=== PATIENT | male | born 1970 | race Caucasian/White ===

== ENCOUNTER 2017-09-25 12:33 | Inpatient (IN) | payer SELFPAY ==
--- NOTE | 2017-09-25 13:07 | PDOC ---
History of Present Illness - General Chief Complaint: Pain, Acute Stated Complaint: ABDOMINAL PAIN, BLOATING Time Seen by Provider: 09/25/17 13:07 - History of Present Illness Initial Comments: Previously healthy 47 year old male presenting with intermittent lower abdominal pain for the past week. Patient describes the pain as an achy pain/ pressure as if "someone is punching me in the stomach". The pain at a maximum 5/ 10 in intensity and non radiation without any obvious exacerbating factors but sometimes better with gas-x and peptobismal. He denies fevers, chills, nausea, vomiting, diarrhea, constipation, chest [ain, coough, urinary frequency, urinary frequency, or dysuria. Does not have a PCP. 09/25/17 13:46 09/25/17 13:58 Past History - Past Medical History Allergies/Adverse Reactions: Allergies Allergy/AdvReac Type Severity Reaction Status Date / Time pork derived (porcine) Allergy Vomiting Verified 09/25/17 12:54 Home Medications: Ambulatory Orders NK [No Known Home Medication] 09/25/17 Asthma: Yes COPD: No - Suicide/Smoking/Psychosocial Hx Smoking History: Former smoker Have you smoked in the past 12 months: Yes If you are a former smoker, when did you quit?: 2 DAYS Information on smoking cessation initiated: Yes 'Breaking Loose' booklet given: 09/25/17 Hx Alcohol Use: Yes (SOCIAL) Drug/Substance Use Hx: No Review of Systems - Review of Systems Constitutional: No: Chills, Diaphoresis, Fever, Loss of Appetite HEENTM: No: Blurred Vision, Recent change in vision Respiratory: No: Cough, Shortness of Breath, Wheezing Cardiac (ROS): No: Chest Pain, Irregular Heart Rate, Lightheadedness ABD/GI: No: Constipated, Diarrhea, Nausea, Vomiting : No: Dysuria, Frequency Integumentary: No: Rash Neurological: No: Numbness, Tingling *Physical Exam - Vital Signs Last Vital Signs Temp Pulse Resp BP Pulse Ox 98.1 F 122 H 20 131/101 99 09/25/17 12:50 09/25/17 12:50 09/25/17 12:50 09/25/17 12:50 09/25/17 12:50 - Physical Exam General Appearance: Yes: Nourished. No: Appropriately Dressed
--- NOTE | 2017-09-25 13:39 | PDOC ---
Attending Attestation - HPI HPI: The patient is a 47 year old male, with no significant past medical history, who presents to the emergency department with, one week of intermittent lower abdominal pain. He describes the lower abdominal pain as a pressure. He reports to have felt bloated today. The patient reports it to feel similar to gas pain. He reports relief when he passes gas. He denies flank pain. He denies any recent fevers, chills, headache or dizziness. He denies any recent nausea, vomit, diarrhea or constipation. He denies any recent chest pain or shortness of breath. He denies any recent dysuria, frequency, urgency or hematuria. Allergies: Pork derived (Porcine) Past surgical history: None reported. Social History: Nonsmoker. Denies recreational drug use. Documentation prepared by Araceli Watson, acting as medical technologist for Becky Munoz MD. 09/25/17 15:03 <Araceli Watson - Last Filed: 09/25/17 15:03> - Resident Resident Name: Annamaria Glasgow - ED Attending Attestation I have performed the following: I have examined & evaluated the patient, The case was reviewed & discussed with the resident, I agree w/resident's findings & plan, Exceptions are as noted - Physicial Exam PE: GENERAL: Awake, alert, and fully oriented, in no acute distress HEAD: No signs of trauma EYES: PERRLA, EOMI, sclera anicteric, conjunctiva clear ENT: Auricles normal inspection, hearing grossly normal, nares patent, oropharynx clear without exudates. Moist mucosa NECK: Normal ROM, supple, no lymphadenopathy, JVD, or masses LUNGS: Breath sounds equal, clear to auscultation bilaterally. No wheezes, and no crackles HEART: Regular rate and rhythm, normal S1 and S2, no murmurs, rubs or gallops ABDOMEN: Soft, +LLQ tenderness, normoactive bowel sounds. No guarding, no rebound. No masses EXTREMITIES: Normal range of motion, no edema. No clubbing or cyanosis. No cords, erythema, or tenderness NEUROLOGICAL: Cranial nerves II through XII grossly intact. Normal speech, normal gait SKIN: Warm, Dry, normal turgor, no rashes or lesions noted. - Medical Decision Making Initial plan was to obtain CT for lower abdominal tenderness, however, labs showed pancreatitis. Will admit for the same. <Becky Munoz - Last Filed: 09/27/17 10:37>
[2017-09-25 14:04] LABS: BASO % 0.5 % (0-2.0); EOS % 0.4 % (0-4.5); MCHC 33.2 g/dl (32.0-35.9); MEAN CELL VOLUME 96.4 fl (80-96); MEAN PLT VOLUME 7.2 fl (7.5-11.1); NEUT % 65.8 % (42.8-82.8); PLATELET COUNT 122 K/MM3 (134-434); RDW 14.9 % (11.9-15.9); WHITE BLOOD COUNT 6.2 K/mm3 (4.0-10.0)
[2017-09-25 14:37] LABS: ALBUMIN 2.8 g/dl (3.4-5.0); ALK PHOS 160 U/L (45-117); ANION GAP 11 (8-16); CALCIUM 8.9 mg/dL (8.5-10.1); CO2 24 mmol/L (21-32); CREATININE 0.6 mg/dL (0.7-1.3); GLUCOSE,RANDOM 94 mg/dL (74-106); SGPT/ALT 32 U/L (12-78)
[2017-09-25 14:41] LABS: SGOT/AST 31 U/L (15-37)
[2017-09-25] MEDS ORDERED: SODIUM CHLORIDE 1,000 ML IV SCH (15:15)
[2017-09-25 15:17] LABS: CHOLESTEROL 126 mg/dL (50-200)
[2017-09-25] MEDS: LACTATED RINGERS SOLUTION 1,000 ML/1,000 ML INFUS.BAG IV SCH (16:02)
[2017-09-25] MEDS ORDERED: morphine SULFATE 4 MG/ML VIAL ONE (16:22)
[2017-09-25] MEDS: morphine SULFATE 4 MG/ML VIAL IVPUSH PRN (16:23)
--- NOTE | 2017-09-25 16:28 | HP ---
CHIEF COMPLAINT: Abdominal Pain PCP: None HISTORY OF PRESENT ILLNESS: Mr Crews is a 47yo otherwise healthy male who presented with 1 week history of sharp, intermittent abdominal pain, in the lower quadrants and at times the LUQ. At its worst, it is 7/10, but at the moment is asymptomatic at rest. He has had no previous similar episodes. Unreliable association with position and food. The pain does not radiate. No history of gallstones, no colicky pain, no abdominal trauma, no scorpion bites. He drinks 3 glasses of wine a day and at times will have one mixed drink. Never withdrawal symptoms. No binges. No nausea , vomiting, diarrhea, constipation. In the ER, the patient was hemodynamically stable. Labs were significant for normal WBC, +Lipase 1113. He had mildly elevated ALP. Abdominal ultrasound was ordered, not performed. He was started on LR 250cc/hr. Recent Travel: Denies PAST MEDICAL HISTORY: None PAST SURGICAL HISTORY: None Social History: Lives with boyfriend Smoking: Currently smokes 1/4 pack per day for 20 years Alcohol: 3+ wine glasses per day Drugs: None Family History: Noncontributory Allergies pork derived (porcine) Allergy (Verified 09/25/17 12:54) Vomiting HOME MEDICATIONS: Home Medications Medication Instructions Recorded NK [No Known Home Medication] 09/25/17 REVIEW OF SYSTEMS CONSTITUTIONAL: Absent: fever, chills, diaphoresis, generalized weakness, malaise, loss of appetite, weight change HEENT: Absent: rhinorrhea, nasal congestion, throat pain, throat swelling, difficulty swallowing, mouth swelling, ear pain, eye pain, visual changes CARDIOVASCULAR: Absent: chest pain, syncope, palpitations, irregular heart rate, lightheadedness , peripheral edema RESPIRATORY: Absent: cough, shortness of breath, dyspnea with exertion, orthopnea, wheezing, stridor, hemoptysis GASTROINTESTINAL: Absent: abdominal pain, abdominal distension, nausea, vomiting, diarrhea, constipation, melena, hematochezia GENITOURINARY: Absent: dysuria, frequency, urgency, hesitancy, hematuria, flank pain, genital pain MUSCULOSKELETAL: Absent: myalgia, arthralgia, joint swelling, back pain, neck pain SKIN: Absent: rash, itching, pallor HEMATOLOGIC/IMMUNOLOGIC: Absent: easy bleeding, easy bruising, lymphadenopathy, frequent infections ENDOCRINE: Absent: unexplained weight gain, unexplained weight loss, heat intolerance, cold intolerance NEUROLOGIC: Absent: headache, focal weakness or paresthesias, dizziness, unsteady gait, seizure, mental status changes, bladder or bowel incontinence PSYCHIATRIC: Absent: anxiety, depression, suicidal or homicidal ideation, hallucinations. PHYSICAL EXAMINATION Vital Signs Temperature 98.1 F 09/25/17 12:50 Pulse Rate 72 09/25/17 14:51 Respiratory Rate 16 09/25/17 14:51 Blood Pressure 110/68 09/25/17 14:51 O2 Sat by Pulse Oximetry (%) 99 09/25/17 12:50 GEN: AAOx3, NAD, smiling and conversational HEENT: PERRLA, EOMi CV: S1, S2, tachycardic rate, regular rhythm LUNG: CTABL ABD: Nondistended, Mostly TTP in LUQ with guarding + rebound. Lesser TTP in Lower abdomen with guarding + rebound. Negative murphys. MSK: No edema, no erythema NEURO: CN 2-12 intact, no MSK or sensation deficits Laboratory Last Values WBC 6.2 K/mm3 (4.0-10.0) 09/25/17 14:00 RBC 4.49 M/mm3 (4.00-5.60) 09/25/17 14:00 Hgb 14.4 GM/dL (11.7-16.9) 09/25/17 14:00 Hct 43.3 % (35.4-49) 09/25/17 14:00 MCV 96.4 fl (80-96) H 09/25/17 14:00 MCH 32.0 pg (25.7-33.7) 09/25/17 14:00 MCHC 33.2 g/dl (32.0-35.9) 09/25/17 14:00 RDW 14.9 % (11.9-15.9) 09/25/17 14:00 Plt Count 122 K/MM3 (134-434) L 09/25/17 14:00 MPV 7.2 fl (7.5-11.1) L 09/25/17 14:00 Neutrophils % 65.8 % (42.8-82.8) 09/25/17 14:00 Lymphocytes % 25.3 % (8-40) 09/25/17 14:00 Monocytes % 8.0 % (3.8-10.2) 09/25/17 14:00 Eosinophils % 0.4 % (0-4.5) 09/25/17 14:00 Basophils % 0.5 % (0-2.0) 09/25/17 14:00 Sodium 135 mmol/L (136-145) L 09/25/17 14:00 Potassium 3.7 mmol/L (3.5-5.1) 09/25/17 14:00 Chloride 100 mmol/L (98-107) 09/25/17 14:00 Carbon Dioxide 24 mmol/L (21-32) 09/25/17 14:00 Anion Gap 11 (8-16) 09/25/17 14:00 BUN 11 mg/dL (7-18) 09/25/17 14:00 Creatinine 0.6 mg/dL (0.7-1.3) L 09/25/17 14:00 Creat Clearance w eGFR > 60 (>60) 09/25/17 14:00 Random Glucose 94 mg/dL (74-106) 09/25/17 14:00 Calcium 8.9 mg/dL (8.5-10.1) 09/25/17 14:00 Total Bilirubin 1.0 mg/dL (0.2-1.0) 09/25/17 14:00 AST 31 U/L (15-37) 09/25/17 14:00 ALT 32 U/L (12-78) 09/25/17 14:00 Alkaline Phosphatase 160 U/L (45-117) H 09/25/17 14:00 Total Protein 7.0 g/dl (6.4-8.2) 09/25/17 14:00 Albumin 2.8 g/dl (3.4-5.0) L 09/25/17 14:00 Triglycerides 63 mg/dL (35-160) 09/25/17 14:00 Cholesterol 126 mg/dL (50-200) 09/25/17 14:00 Total LDL Cholesterol 86 mg/dL (5-100) 09/25/17 14:00 HDL Cholesterol 38 mg/dL (40-60) L 09/25/17 14:00 Lipase 1113 U/L (73-393) H 09/25/17 14:00 Active Medications Generic Name Dose Route Start Last Admin Trade Name Freq PRN Reason Stop Dose Admin Lactated Ringer's 1,000 ml in 1,000 mls @ 250 mls/hr 09/25/17 15:30 09/25/17 16:02 Lactated Ringers Solution IV 250 mls/hr ASDIR OLEGARIO Administration Morphine Sulfate 2 mg 09/25/17 16:05 09/25/17 16:23 Morphine Sulfate IVPUSH 2 mg Q4H PRN Administration PAIN ASSESSMENT/PLAN: Mr Crews is a 47yo otherwise healthy male who presented with 1 week history of sharp, intermittent abdominal pain found to have acute pancreatitis. # Acute Pancreatitis - Amount of alcohol abuse does not justify alcohol induced pancreatitis. Could be secondary to gallstones since ALP is slightly elevated, though Dunlap's negative. Will get Abd U/S to assess for gallstones. If stones are present, will consult surgery for cholecystectomy at this visit. No other possible causes. Will keep NPO for today and reassess tmrw. Will start LR @250cc/hr since pt has good renal function. IV Morphine PRN for pain. # Nicotine Abuse - Daily smoker, will give nicotine patch if requests # FEN - IVF as stated above, elec WNL, NPO for now # PPx - EAM, SCDs, avoid Heparin due to porcine allergy, no GI ppx needed, no PT needed as patient is ambulatory # Dispo - Admit to med/surg. ADAT. d/w Dr Ana Lilia Mercedes MD - PGY1 Internal Medicine Resident Visit type - Emergency Visit Emergency Visit: No - New Patient This patient is new to me today: No - Critical Care Critical Care patient: No
--- NOTE | 2017-09-25 17:53 | PN ---
Teaching Attending Note Name of Resident: Nay Mercedes ATTENDING PHYSICIAN STATEMENT I saw and evaluated the patient. I reviewed the resident's note and discussed the case with the resident. I agree with the resident's findings and plan as documented. SUBJECTIVE:47yo M with no PMH presented to the ER with low abdominal pain x1 week. progressively worsen. no exacerbating or relieving factors. was well prior to the start of abdominal pain. denies previous episodes. denies Cp, SOB, fever, chills, n/V/c/d, colic pain. Admit to drinking 3 glasses of wine daily. no binge episodes recently OBJECTIVE: Last Vital Signs Temp Pulse Resp BP Pulse Ox 98.1 F 72 16 110/68 99 09/25/17 12:50 09/25/17 14:51 09/25/17 14:51 09/25/17 14:51 09/25/17 12:50 General NAD CV S1 S2 tachy Lungs CTA B/L no wheezing Abdomen +LLQ/RLQ tenderness, +epigastric guarding normoactive BS, negative jennings sign Extremities no pedal edema ASSESSMENT AND PLAN: 47 yo M with no PMH presented to the ER with abdominal pain and found to have acute pancreatitis 1. Acute Pancreatitis- medicine admission. likely due to gallstones, mildly elevated alk phos. Start NPO, LR @ 200cc/H, pain and nausea control. U/s done and awaiting official read. TG, Ca normal limits 2. Continuous polysubstance abuse- nicotine and ETOH. counseled on risks of continued use. nicotine patch, 3. DVT ppx- EAM, SCD. has porcine allergy
[2017-09-25 19:00] LABS: URINE APPEARANCE CLEAR; URINE BILIRUBIN NEGATIVE (NEGATIVE); URINE BLOOD 1+ (NEGATIVE); URINE COLOR YELLOW; URINE GLUCOSE (UA) NEGATIVE (NEGATIVE); URINE KETONE 1+ (NEGATIVE); URINE LEUK ESTERASE NEGATIVE (NEGATIVE); URINE NITRITE NEGATIVE (NEGATIVE); URINE PROTEIN NEGATIVE (NEGATIVE); URINE UROBILINOGEN NEGATIVE mg/dL (0.2-1.0)
[2017-09-26] MEDS ORDERED: morphine SULFATE 4 MG/ML VIAL ONE (01:16)
[2017-09-26] MEDS: morphine SULFATE 4 MG/ML VIAL IVPUSH PRN ×2 (01:20→09:05)
[2017-09-26 06:26] LABS: MCH 33.1 pg (25.7-33.7); MEAN CELL VOLUME 97.2 fl (80-96); PLATELET COUNT 126 K/MM3 (134-434); RDW 14.9 % (11.9-15.9); WHITE BLOOD COUNT 3.6 K/mm3 (4.0-10.0)
[2017-09-26 07:06] LABS: ALBUMIN 2.3 g/dl (3.4-5.0); ANION GAP 11 (8-16); CALCIUM 8.1 mg/dL (8.5-10.1); CO2 23 mmol/L (21-32); CREATININE 0.4 mg/dL (0.7-1.3); GLUCOSE,RANDOM 77 mg/dL (74-106); MAGNESIUM 1.4 mg/dL (1.8-2.4); PHOSPHOROUS 2.6 mg/dL (2.5-4.9); SGOT/AST 20 U/L (15-37); SGPT/ALT 22 U/L (12-78)
[2017-09-26 07:07] LABS: ALK PHOS 121 U/L (45-117); BILIRUBIN,TOTAL 1.1 mg/dL (0.2-1.0); TOT PROT 5.8 g/dl (6.4-8.2)
[2017-09-26] MEDS ORDERED: morphine CARPU-JECT 8 MG/1 ML DISP.SYRIN ONE (09:11)
[2017-09-26] MEDS: LACTATED RINGERS SOLUTION 1,000 ML/1,000 ML INFUS.BAG IV SCH ×3 (12:52→20:30)
[2017-09-26] MEDS ORDERED: MAGNESIUM SULF 50% (8.12 MEQ/2 ML-1 GM VIAL) IVPB ONE (13:30)
[2017-09-26 13:34] VITALS: BMI 19.6
[2017-09-26 13:35] LABS: URINE LEUK ESTERASE Negative (NEGATIVE)
[2017-09-26 13:52] LABS: MCH 32.1 pg (25.7-33.7); MCHC 32.8 g/dl (32.0-35.9); MEAN CELL VOLUME 97.9 fl (80-96); MEAN PLT VOLUME 7.8 fl (7.5-11.1); PLATELET COUNT 129 K/MM3 (134-434); RDW 14.8 % (11.9-15.9); WHITE BLOOD COUNT 4.3 K/mm3 (4.0-10.0)
--- NOTE | 2017-09-26 14:00 | PN ---
Teaching Attending Note Name of Resident: Amado Kulkarni ATTENDING PHYSICIAN STATEMENT I saw and evaluated the patient. I reviewed the resident's note and discussed the case with the resident. I agree with the resident's findings and plan as documented. SUBJECTIVE:now complaining of RLQ pain radiating to the back. staes it started suddenly this AM. dneies CP, SOB, fever, chills, N/V/C/D OBJECTIVE: Last Vital Signs Temp Pulse Resp BP Pulse Ox 98.2 F 92 H 18 131/89 96 09/26/17 10:34 09/26/17 10:34 09/26/17 10:34 09/26/17 10:34 09/26/17 09:47 General NAD CV S1 S2 RRR Lungs CTA B/L no wheezing Abdomen +RLQ tenderness, +guarding + mcburny point. negative rovsing sign negative obtruator sign Extremities no pedal edema ASSESSMENT AND PLAN: 47 yo M with no PMH presented to the ER with abdominal pain and found to have acute pancreatitis 1. Acute Pancreatitis-now has point tenderness in RLQ clinically concerning for appendicitis. unable to visualize appendix on u/s. CT with contrast to evaluate. clinically improved. U/s showing dilated pancreatic duct. will need MRCP to further evaluate. IVF and pain control. NPO until results of CT 2. anemia- likely dilutional. repeat Hgb. no signs of bleeding. no need for txn 3. Hypomangesemia- Mg 1g 4. Continuous polysubstance abuse- nicotine and ETOH. counseled on risks of continued use. nicotine patch, 5. DVT ppx- EAM, SCD. has porcine allergy 6. spoke with pt with mother present at bedside. all questions answered. verbalized understanding of plan
--- NOTE | 2017-09-26 16:11 | PN ---
Physical Exam: SUBJECTIVE: Patient seen and examined at bedside. Patient states he feels slightly better today, but still continues to complain of intermittent abdominal pain. Patient states his pain is controlled with medications. OBJECTIVE: Vital Signs Period Temp Pulse Resp BP Sys/Jones Pulse Ox Last 24 Hr 97.9 F-99.5 F 84-105 16-20 131-147/76-96 96-100 GENERAL: The patient is awake, alert, and fully oriented, in no acute distress. HEAD: Normal with no signs of trauma. LUNGS: Breath sounds equal, clear to auscultation bilaterally, no wheezes, no crackles, no accessory muscle use. HEART: Regular rate and rhythm, S1, S2 without murmur, rub or gallop. ABDOMEN: Tenderness to palpation in all quadrants with possible rebound in the RUQ. Abdominal exam is limited due to diffuse guarding. EXTREMITIES: 2+ pulses, warm, well-perfused, no edema. NEUROLOGICAL: Cranial nerves II through X grossly intact. Normal speech, gait not observed. SKIN: Warm, dry, normal turgor, no rashes or lesions noted Laboratory Results - last 24 hr 09/25/17 09/26/17 09/26/17 18:50 05:44 05:44 WBC 3.6 L D RBC 3.72 L Hgb 12.3 D Hct 36.1 D MCV 97.2 H MCH 33.1 MCHC 34.0 RDW 14.9 Plt Count 126 L MPV 8.0 D Sodium 135 L Potassium 3.4 L Chloride 101 Carbon Dioxide 23 Anion Gap 11 BUN 9 Creatinine 0.4 L D Creat Clearance w eGFR > 60 Random Glucose 77 Calcium 8.1 L Phosphorus 2.6 Magnesium 1.4 L Total Bilirubin 1.1 H AST 20 D ALT 22 D Alkaline Phosphatase 121 H D Total Protein 5.8 L Albumin 2.3 L Urine Color Yellow Urine Appearance Clear Urine pH 6.0 Ur Specific Hollis 1.008 Urine Protein Negative Urine Glucose (UA) Negative Urine Ketones 1+ H Urine Blood 1+ H Urine Nitrite Negative Urine Bilirubin Negative Urine Urobilinogen Negative Ur Leukocyte Esterase Negative 09/26/17 12:55 WBC 4.3 RBC 3.83 L Hgb 12.3 Hct 37.5 MCV 97.9 H MCH 32.1 MCHC 32.8 RDW 14.8 Plt Count 129 L MPV 7.8 Sodium Potassium Chloride Carbon Dioxide Anion Gap BUN Creatinine Creat Clearance w eGFR Random Glucose Calcium Phosphorus Magnesium Total Bilirubin AST ALT Alkaline Phosphatase Total Protein Albumin Urine Color Urine Appearance Urine pH Ur Specific Hollis Urine Protein Urine Glucose (UA) Urine Ketones Urine Blood Urine Nitrite Urine Bilirubin Urine Urobilinogen Ur Leukocyte Esterase Active Medications Generic Name Dose Route Start Last Admin Trade Name Freq PRN Reason Stop Dose Admin Lactated Ringer's 1,000 ml in 1,000 mls @ 250 mls/hr 09/25/17 15:30 09/26/17 12:52 Lactated Ringers Solution IV 250 mls/hr ASDIR OLEGARIO Administration Morphine Sulfate 2 mg 09/25/17 16:05 09/26/17 09:05 Morphine Sulfate IVPUSH 2 mg Q4H PRN Administration PAIN ASSESSMENT/PLAN: Mr Crews is a 47yo otherwise healthy male who presented with 1 week history of sharp, intermittent abdominal pain found to have acute pancreatitis. # abdominal pain 2/2 possible Acute Pancreatitis vs appendicitis -LR @ 250 -CT abdomen w/ contrast to r/o appendicitis -If CT abdomen negative for appendicitis, will proceed w/ MRCP -IV Morphine PRN for pain. # FEN -LR @ 250 -K and mag low; will replete -NPO until appendicitis ruled out # PPx -Early ambulation, SCDs -avoid HSQ 2/2 porcine allergy -no GI pptx indicated at this time # Dispo -admitted to med-surg Visit type - Emergency Visit Emergency Visit: Yes ED Registration Date: 09/25/17 Care time: The patient presented to the Emergency Department on the above date and was hospitalized for further evaluation of their emergent condition. - New Patient This patient is new to me today: Yes Date on this admission: 09/26/17 - Critical Care Critical Care patient: No
[2017-09-26] MEDS ORDERED: KCL 10 MEQ IVPB 10 MEQ/100 ML INFUS.BAG IVPB SCH (17:30)
[2017-09-26] MEDS ORDERED: LORazepam 2 MG/ML SDV VIAL IVPUSH ONE (17:30)
[2017-09-26] MEDS ORDERED: POTASSIUM CHLORIDE 30 MEQ in SODIUM CHLORIDE 300 ML IVPB ONE (17:30)
[2017-09-26] MEDS ORDERED: POTASSIUM CHLORIDE ORAL LIQUID 20 MEQ/15 ML PO ONE (17:50)
[2017-09-26] MEDS: POTASSIUM CHLORIDE 20 MEQ PREMIX IVPB 100 ML IVPB SCH (18:15)
[2017-09-27] MEDS: LACTATED RINGERS SOLUTION 1,000 ML/1,000 ML INFUS.BAG IV SCH ×2 (00:43→04:44)
[2017-09-27] MEDS: morphine SULFATE 4 MG/ML VIAL IVPUSH PRN (01:11)
--- NOTE | 2017-09-27 01:32 | EKG ---
Test Reason : Blood Pressure : / mmHG Vent. Rate : 100 BPM Atrial Rate : 100 BPM P-R Int : 142 ms QRS Dur : 088 ms QT Int : 350 ms P-R-T Axes : 059 057 066 degrees QTc Int : 451 ms NORMAL SINUS RHYTHM MINIMAL VOLTAGE CRITERIA FOR LVH, MAY BE NORMAL VARIANT BORDERLINE ECG NO PREVIOUS ECGS AVAILABLE Confirmed by SARITA AHUJA MD ([id number]) on 09/27/2017 1:31:58 AM Referred By: Confirmed By:SARITA AHUJA MD
[2017-09-27 05:48] VITALS: BP 143/96; PULSE 94; TEMP 98.6
[2017-09-27 08:35] LABS: MCHC 33.1 g/dl (32.0-35.9); MEAN CELL VOLUME 96.9 fl (80-96); MEAN PLT VOLUME 7.7 fl (7.5-11.1); PLATELET COUNT 171 K/MM3 (134-434); RDW 14.5 % (11.9-15.9); WHITE BLOOD COUNT 3.5 K/mm3 (4.0-10.0)
[2017-09-27] MEDS ORDERED: FOLIC ACID INJECTION - 1 MG, THIAMINE HCL 100 MG, MULTIVIT INJECTION ADULT 10 ML in SOD... IVPB ONE (09:00)
[2017-09-27 09:05] LABS: ANION GAP 11 (8-16); CALCIUM 7.9 mg/dL (8.5-10.1); CO2 22 mmol/L (21-32); CREATININE 0.4 mg/dL (0.7-1.3); GLUCOSE,RANDOM 74 mg/dL (74-106); MAGNESIUM 1.5 mg/dL (1.8-2.4)
--- NOTE | 2017-09-27 16:07 | DS ---
Physical Exam: SUBJECTIVE: Patient seen and examined. Pt denies chest pain, sob, abdominal pain, nausea, vomiting, headache. Pt reports abdominal pain is improving, though still present. Pt left AMA without re-assessment or counseling. OBJECTIVE: Vital Signs Period Temp Pulse Resp BP Sys/Jones Pulse Ox Last 24 Hr 97.8 F-98.6 F 92-107 16-18 138-145/84-96 99 PHYSICAL EXAM GENERAL: The patient is awake, alert, and fully oriented, in no acute distress. HEAD: Normal with no signs of trauma. LUNGS: Breath sounds equal, clear to auscultation bilaterally, no wheezes, no crackles, no accessory muscle use. HEART: Regular rate and rhythm, S1, S2 without murmur, rub or gallop. ABDOMEN: Diffuse tenderness to palpation. Nondistended. EXTREMITIES: Warm, well-perfused, no edema. NEUROLOGICAL: Cranial nerves II through XII grossly intact. Normal speech, gait not observed. PSYCH: Normal mood, normal affect. SKIN: Warm, dry, normal turgor, no rashes or lesions noted. LABS Laboratory Results - last 24 hr 09/27/17 09/27/17 07:34 07:34 WBC 3.5 L RBC 3.91 L Hgb 12.5 Hct 37.9 MCV 96.9 H MCH 32.0 MCHC 33.1 RDW 14.5 Plt Count 171 D MPV 7.7 Sodium 135 L Potassium 3.4 L Chloride 102 Carbon Dioxide 22 Anion Gap 11 BUN 3 L D Creatinine 0.4 L Random Glucose 74 Calcium 7.9 L Magnesium 1.5 L HOSPITAL COURSE: Date of Admission:09/25/17 Date of Discharge: 09/27/17 47yo M with no significant PMH presenting with sharp, intermittent abdominal pain x 1 week, found to have acute pancreatitis. Pt left AMA. Two phone calls placed trying to reach pt, and 1 voicemail left. Pt has not called back. 09/25/17 Ab US -> trace ascites. No evidence of cholelithiasis or biliary ductal dilatation. Prominent main pancreatic duct. 09/26/17 Ab/Pel CT -> 1. Normal appendix. No bowel obstruction. 2. Enlargement and heterogeneous enhancement of the pancreatic head and extensive wall thickening in the gastric pylorus, first second and third portions of the duodenum compatible with pancreatitis and duodenitis. Large area of increased attenuation of the peripancreatic and paraduodenal fat represent some combination of fat necrosis and inflammatory fluid/tissue. Superimposed infection cannot be excluded. 3. Rounded hypoattenuation within the pancreatic head measuring 1.2 x 0.8 cm may be an area of necrosis, cystic neoplasm or pseudocyst (possibly chronic if there is a history of pancreatitis). No pancreatic ductal dilatation. Please compare with prior CT or MRI of the abdomen , available. A short-term follow-up multiphase contrast-enhanced MRI or CT of the pancreas is recommended. 4. Rounded hypodensities surrounding and/or within the wall of the second portion of the duodenum measuring up to 1.7 cm may represent areas of walled off necrosis or confluent edema. Superimposed infection cannot be excluded. 5. Mildly dilated common bile duct measuring 6-7 mm in diameter, with segmental mucosal hyperenhancement in the mid to distal CBD which may be reactive hyperemia, although, cholangitis cannot be excluded. 6. Moderately severe hepatic steatosis. 7. Thickening of the urinary bladder wall with perivesical fat stranding is compatible with cystitis in the appropriate setting. Please correlate with urinalysis. 8. A 4 mm nonobstructing left renal calculus. No hydronephrosis. 9. A 0.9 x 0.9 cm mildly exophytic lesion in the medial upper pole of the left kidney which measures more than fluid may be a cyst with proteinaceous contents, although a solid lesion is not excluded. Please correlate with renal sonogram. 10. Bulging annulus and right paracentral protrusion at L5-S1 possibly impinging the right S1 nerve root. Minutes to complete discharge: 35 Discharge Summary Reason For Visit: PANCREATITIS - Instructions Disposition: AGAINST MEDICAL ADVICE - Home Medications Comprehensive Discharge Medication List: Ambulatory Orders NK [No Known Home Medication] 09/25/17 This patient is new to me today: Yes Date on this admission: 09/27/17 Emergency Visit: Yes ED Registration Date: 09/25/17 Care time: The patient presented to the Emergency Department on the above date and was hospitalized for further evaluation of their emergent condition. Critical Care patient: No - Discharge Referral [facility]erred to [facility] No
== END 2017-09-27 08:24 | disposition left against medical advice (07) | DRG 282 ==
LOC: JER 12:33 → JERBED 15:34 → J5S 09-26 10:21
PROVIDERS: ADMIT Internal Medicine; ATTEND Hospitalist
DX: K85.90 Acute pancreatitis without necrosis or infection, unspecified (principal); Z87.891 Personal history of nicotine dependence; D64.9 Anemia, unspecified; E83.42 Hypomagnesemia; K86.3 Pseudocyst of pancreas
CPT/HCPCS: 36415; 74177-TC; 76705-TC; 80048; 80053; 80061; 81003; 81015; 83690; 83721; 83735; 84100; 85025; 85027; 93005; 93010; 99285-25; Q9967